=== PATIENT | male | born 1945 | race Caucasian/White ===

== ENCOUNTER 2020-06-15 14:03 | Observation (INO) ==
[2020-06-15 14:36] VITALS: BMI 31.5
--- NOTE | 2020-06-15 14:48 | DR.GENAD ---
HPI Time Seen Time Seen by Provider: 06/15/20 14:47 PCP Primary Care Physician: KOMAL Complaint/Symptoms Chief Complaint:: PT. TESTED POSITIVE FOR COVID 19 ON TUESDAY. PT. C/O DECREASED APPETITE AND WEAKNESS. PT. C/O NAUSEA AND DIARRHEA. COVID-19 Coronavirus risk:travel/contact w/high risk person: Yes Has patient experienced Coronavirus symptoms: Yes Coronavirus symptoms experienced: Coughing Source History Provided: Patient and Family Member Mode of Arrival Mode of Arrival: Wheelchair Timing Onset of Chief Complaint: 06/10/20 PMH PMH Past Medical History: Yes Past Medical History: Diabetes, GERD and Kidney Stones Past Medical History Comment: PROSTATE CANCER Past Surgical History: Yes Surgical History: Other Past Surgical History Comment: HEMORRHOID Family History History of Family Medical Conditions: Yes Family Medical History: Diabetes Mellitus, Heart Failure and Hypertension Social History Does patient currently use any type of tobacco product: No Have you used tobacco products in the last 12 months: No Type of Tobacco Use: None Does any household member use tobacco: No Alcohol Use: None Do you use any recreational Drugs:: No Lives With: Spouse Lives Where: Home Travel Risk Coronavirus risk:travel/contact w/high risk person: Yes Has patient experienced Coronavirus symptoms: Yes Coronavirus symptoms experienced: Coughing Infectious screening In the last 2 months have you had wt loss of >10#?: NO Have you had fever, night sweats or hemotysis?: No Have you traveled outside the country in the last 6 months?: No Isolation: Droplet PE Vital Signs Vitals: Temperature 98.4 F Pulse Rate [Right Brachial] 76 Pulse Rate 87 Respiratory Rate 18 Blood Pressure [Left Arm] 173/79 Blood Pressure 155/70 O2 Sat by Pulse Oximetry 95 ROR Labs Reviewed Result Diagrams: 06/15/20 15:20 06/15/20 15:20 Laboratory: WBC 6.6 X10^3/uL (3.6-10.0) 06/15/20 15:20 RBC 4.59 X10^6/uL (4.7-6.0) L 06/15/20 15:20 Hgb 13.7 g/dL (13.5-18.0) 06/15/20 15:20 Hct 40.3 % (42.0-54.0) L 06/15/20 15:20 MCV 87.8 fL (80.0-100.0) 06/15/20 15:20 MCH 29.9 pg (27.0-34.0) 06/15/20 15:20 MCHC 34.0 g/dL (33.0-35.0) 06/15/20 15:20 RDW 13.2 % (11.6-16.5) 06/15/20 15:20 Plt Count 180 X10^3/uL (150.0-450.0) 06/15/20 15:20 MPV 7.2 fL (7.4-11.0) L 06/15/20 15:20 Neut % (Auto) 79.3 % (42.0-75.0) H 06/15/20 15:20 Lymph % (Auto) 10.7 % (21.0-51.0) L 06/15/20 15:20 Lewis % (Auto) 9.5 % (0.0-13.0) 06/15/20 15:20 Eos % (Auto) 0.2 % (0.9-2.9) L 06/15/20 15:20 Baso % (Auto) 0.3 % (0.2-1.0) 06/15/20 15:20 Neut # (Auto) 5.3 x10^3/uL (2.2-4.8) H 06/15/20 15:20 Lymph # (Auto) 0.7 X10^3/uL (1.3-2.9) L 06/15/20 15:20 [place] # (Auto) 0.6 x10^3/uL (0.3-0.8) 06/15/20 15:20 Eos # (Auto) 0.0 x10^3/uL (0.0-0.2) 06/15/20 15:20 Baso # (Auto) 0.0 X10^3/uL (0.0-0.1) 06/15/20 15:20 Absolute Nucleated RBC 0.2 /100WBC 06/15/20 15:20 Sample Site Lrad 06/15/20 15:43 ABG pH 7.470 (7.35-7.45) H 06/15/20 15:43 ABG pCO2 34.0 mmHg (35.0-45.0) L 06/15/20 15:43 ABG pO2 71.0 mmHg (80.0-100.0) L 06/15/20 15:43 ABG HCO3 24.7 mmol/L (22-26) 06/15/20 15:43 ABG O2 Saturation 95.0 % (90-100) 06/15/20 15:43 ABG Base Excess 1.4 mmol/L (-2.0-2.0) 06/15/20 15:43 Cristi Test Pos 06/15/20 15:43 A-a Gradient 36.0 mmHg 06/15/20 15:43 FiO2 21.0 06/15/20 15:43 Blood Gas Comments Pt mirela well elj 06/15/20 15:43 Sodium 133 mmol/L (136-145) L 06/15/20 15:20 Corrected Sodium 134 mmol/L (136-145) L 06/15/20 15:20 Potassium 4.2 mmol/L (3.5-5.1) 06/15/20 15:20 Chloride 99 mmol/L (98-107) 06/15/20 15:20 Carbon Dioxide 25.3 mmol/L (21-32) 06/15/20 15:20 BUN 17 mg/dL (7-18) 06/15/20 15:20 Creatinine 1.19 mg/dL (0.70-1.30) 06/15/20 15:20 Est GFR (MDRD) Af Amer > 60 (>60) 06/15/20 15:20 Est GFR (MDRD) Non-Af > 60 (>60) 06/15/20 15:20 Glucose 151 mg/dL (65-99) H 06/15/20 15:20 POC Glucose (mg/dL) 154 mg/dL (65-99) H 06/15/20 21:44 Calcium 8.7 mg/dL (8.5-10.1) 06/15/20 15:20 Corrected Calcium 9.5 mg/dL (8.5-10.1) 06/15/20 15:20 Total Bilirubin 0.40 mg/dL (0.2-1.0) 06/15/20 15:20 AST 24 Units/L (15-37) 06/15/20 15:20 ALT 24 Units/L (12-78) 06/15/20 15:20 Alkaline Phosphatase 47 Units/L (46-116) 06/15/20 15:20 Creatine Kinase 54 Units/L (39-308) 06/15/20 15:20 Creatine Kinase Cancelled 06/15/20 15:20 CK-MB (CK-2) < 1.0 ng/mL (0-4.0) 06/15/20 15:20 CK-MB (CK-2) Cancelled 06/15/20 15:20 CK/CKMB % Calc 1.9 % (<4) 06/15/20 15:20 CK/CKMB % Calc Cancelled 06/15/20 15:20 Troponin I < 0.02 ng/mL (0-1.5) 06/15/20 15:20 Troponin I Cancelled 06/15/20 15:20 Total Protein 7.1 g/dL (6.4-8.2) 06/15/20 15:20 Albumin 3.0 g/dL (3.4-5.0) L 06/15/20 15:20 Globulin 4.1 g/dL (2.5-4.5) 06/15/20 15:20 Albumin/Globulin Ratio 0.7 Ratio (1.1-2.1) L 06/15/20 15:20 SARS CoV-2 RNA Rapid JOAQUIN Positive (NEGATIVE) A 06/15/20 19:39 Opioid Opioid Risk Tool Age (Brown box if 16-45): No History of Preadolescent Sexual Abuse: No Total: 0 Total Score Risk Category: Low Risk Copyright: [facility] predicting aberrant behaviors Diagnosis Discharge Problem: Generalized weakness, Acute dehydration, COVID-19 virus infection Diarrhea Qualifiers: Diarrhea type: unspecified type Qualified Code(s): R19.7 - Diarrhea, unspecifi ed N&V (nausea and vomiting) Qualifiers: Vomiting type: unspecified Vomiting Intractability: unspecified Qualified Code(s): R11.2 - Nausea with vomiting, unspecified Pneumonia Qualifiers: Pneumonia type: due to unspecified organism Laterality: left Lung location: lower lobe of lung Qualified Code(s): J18.9 - Pneumonia, unspecified organism Instructions Forms: Precautions for COVID19 Patient Portal Social Distancing
[2020-06-15 15:39] LABS: BASOPHILS % (AUTO) 0.3 % (0.2-1.0); EOSINOPHILS % (AUTO) 0.2 % (0.9-2.9); HEMATOCRIT 40.3 % (42.0-54.0); HEMOGLOBIN 13.7 g/dL (13.5-18.0); LYMPHOCYTES # (AUTO) 0.7 X10^3/uL (1.3-2.9); LYMPHOCYTES % (AUTO) 10.7 % (21.0-51.0); MEAN CORPUSCULAR HEMOGLOBIN 29.9 pg (27.0-34.0); MEAN CORPUSCULAR VOLUME 87.8 fL (80.0-100.0); MEAN PLATELET VOLUME 7.2 fL (7.4-11.0); MONOCYTES # (AUTO) 0.6 x10^3/uL (0.3-0.8); MONOCYTES % (AUTO) 9.5 % (0.0-13.0); NEUTROPHILS # (AUTO) 5.3 x10^3/uL (2.2-4.8); NEUTROPHILS % (AUTO) 79.3 % (42.0-75.0); PLATELET COUNT 180 X10^3/uL (150.0-450.0); RED BLOOD COUNT 4.59 X10^6/uL (4.7-6.0); RED CELL DISTRIBUTION WIDTH 13.2 % (11.6-16.5); WHITE BLOOD COUNT 6.6 X10^3/uL (3.6-10.0)
[2020-06-15 15:49] LABS: ABG ALLEN TEST POS; ABG BASE EXCESS 1.4 mmol/L (-2.0-2.0); ABG HCO3 24.7 mmol/L (22-26)
[2020-06-15 15:54] LABS: BLOOD UREA NITROGEN 17 mg/dL (7-18); CALCIUM 8.7 mg/dL (8.5-10.1); CARBON DIOXIDE 25.3 mmol/L (21-32); CHLORIDE 99 mmol/L (98-107); COR NA(FOR HYPERGLY) 134 mmol/L (136-145); CREATININE 1.19 mg/dL (0.70-1.30); SODIUM 133 mmol/L (136-145); TROPONIN I < 0.02 ng/mL (0-1.5); eGFR NON BLACK RACES > 60 (>60)
--- NOTE | 2020-06-15 15:57 | RAD ---
HISTORYCOVID, LOSS OF APPETITE, NVDSTUDYCHEST, 1 VIEWCOMPARISONNone.FINDINGSOverlying artifact. Heart size normal. Vague opacities laterally in the left mid and lower lung zones. Costophrenic angles sharp. No pulmonary edema. Bony structures normal in appearance for patient's age.IMPRESSIONVague opacities laterally in the left mid and lower lung zones.Electronically signed by: Ralf Lindsey (Jun 15, 2020 15:56:09)
[2020-06-15 15:59] LABS: ALANINE AMINOTRANSFERASE 24 Units/L (12-78); ALKALINE PHOSPHATASE 47 Units/L (46-116); ASPARTATE AMINO TRANSFERASE 24 Units/L (15-37); CKMB % 1.9 % (<4); COR CA(FOR HYPOALB) 9.5 mg/dL (8.5-10.1); CREATINE KINASE 54 Units/L (39-308); CREATINE KINASE MB < 1.0 ng/mL (0-4.0); TOTAL PROTEIN 7.1 g/dL (6.4-8.2)
[2020-06-15] MEDS ORDERED: ROCEPHIN VIAL 1 GRAM 1 G in NS 100 ML IV + SPIKE MINIBAG* 100 ML IV ONE (17:29)
[2020-06-15] MEDS ORDERED: NS 1000 ML 1,000 ML IV ONE (17:31)
[2020-06-15] MEDS ORDERED: NS 100 ML IV + SPIKE MINIBAG* 100 ML IV ONE (17:47)
[2020-06-15] MEDS ORDERED: ROCEPHIN VIAL 1 GRAM ONE (17:47)
[2020-06-15] MEDS ORDERED: NS 1000 ML 1,000 ML ONE (17:49)
[2020-06-16] MEDS ORDERED: ZOFRAN INJ 4 MG VIAL IVP PRN (00:49)
[2020-06-16] MEDS ORDERED: PEPCID 20 MG IV PREMIX* 20 MG/50 ML BAG IV PRN (00:49)
[2020-06-16] MEDS: NS 1000 ML 1,000 ML IV SCH ×3 (02:52→21:01)
[2020-06-16 05:56] LABS: ALANINE AMINOTRANSFERASE 23 Units/L (12-78); ALBUMIN 2.8 g/dL (3.4-5.0); ALKALINE PHOSPHATASE 42 Units/L (46-116); ASPARTATE AMINO TRANSFERASE 23 Units/L (15-37); BLOOD UREA NITROGEN 17 mg/dL (7-18); CALCIUM 8.2 mg/dL (8.5-10.1); CARBON DIOXIDE 23.3 mmol/L (21-32); CHLORIDE 100 mmol/L (98-107); COR CA(FOR HYPOALB) 9.2 mg/dL (8.5-10.1); COR NA(FOR HYPERGLY) 136 mmol/L (136-145); CREATININE 1.05 mg/dL (0.70-1.30); SODIUM 135 mmol/L (136-145); TOTAL PROTEIN 6.7 g/dL (6.4-8.2); eGFR NON BLACK RACES > 60 (>60)
[2020-06-16 06:04] LABS: BASOPHILS % (AUTO) 0.5 % (0.2-1.0); EOSINOPHILS % (AUTO) 0.2 % (0.9-2.9); LYMPHOCYTES # (AUTO) 1.2 X10^3/uL (1.3-2.9); LYMPHOCYTES % (AUTO) 24.8 % (21.0-51.0); MEAN CORPUSCULAR HGB CONC 34.3 g/dL (33.0-35.0); MEAN CORPUSCULAR VOLUME 87.3 fL (80.0-100.0); MEAN PLATELET VOLUME 7.9 fL (7.4-11.0); MONOCYTES # (AUTO) 0.5 x10^3/uL (0.3-0.8); MONOCYTES % (AUTO) 10.7 % (0.0-13.0); NEUTROPHILS # (AUTO) 3.1 x10^3/uL (2.2-4.8); NEUTROPHILS % (AUTO) 63.8 % (42.0-75.0); PLATELET COUNT 181 X10^3/uL (150.0-450.0); RED BLOOD COUNT 4.35 X10^6/uL (4.7-6.0); RED CELL DISTRIBUTION WIDTH 13.1 % (11.6-16.5); WHITE BLOOD COUNT 4.8 X10^3/uL (3.6-10.0)
[2020-06-16] MEDS ORDERED: TYLENOL 325 MG TAB PO PRN (07:24)
[2020-06-16 07:44] LABS: BILIRUBIN,URINE NEGATIVE (NEGATIVE); BLOOD/HEMOGLOBIN,URINE 2+ (NEGATIVE); GLUCOSE, URINE NEGATIVE (NEGATIVE); KETONES,URINE 2+ (NEGATIVE); LEUKOCYTE ESTERASE ,URINE NEGATIVE (NEGATIVE); NITRITES,URINE NEGATIVE (NEGATIVE); PROTEIN,URINE 2+ (NEGATIVE); UROBILINOGEN,URINE NORMAL (NORMAL)
[2020-06-16 08:05] LABS: COLOR,URINE DARK YELLOW (YELLOW)
[2020-06-16 08:06] LABS: APPEARANCE,URINE CLOUDY (CLEAR)
[2020-06-16 08:09] LABS: SQUAMOUS EPITHELIAL CELL,UR FEW /HPF (NEGATIVE)
[2020-06-16 08:10] LABS: BACTERIA,URINE TRACE /HPF (NEGATIVE)
[2020-06-16] MEDS ORDERED: REMDESIVIR 200 MG in NS 250 ML IV 250 ML IV NR (08:54)
--- NOTE | 2020-06-16 10:42 | RAD ---
HISTORYPNEUMONIASTUDYCHEST, 1 [id number]/20/2020FINDINGSStable cardiomediastinal silhouette. Right lung grossly clear. There are progressive streaky opacities in the left midlung. No sizable effusion or visible pneumothorax. No acute osseous finding.IMPRESSIONWorsening left lung opacities.Electronically signed by: Vineet Tyson (Jun 16, 2020 10:40:16)
[2020-06-16] MEDS: ZITHROMAX INJ 500 MG VIAL 500 MG in NS 250 ML IV 250 ML IV SCH ×2 (11:22→11:26)
[2020-06-16] MEDS: ZOSYN VIAL 3.375 GRAMS 3.375 G in NS 100 ML IV + SPIKE MINIBAG* 100 ML IV SCH ×3 (11:22→21:02)
[2020-06-16] MEDS: PEPCID TAB 20 MG PO SCH ×2 (11:23→21:02)
[2020-06-16] MEDS: PROTONIX INJ 40 MG VIAL IVP SCH (11:23)
[2020-06-16] MEDS: SOLU-Medrol 40 MG VIAL IVP SCH ×3 (11:23→21:02)
[2020-06-16] MEDS: HumuLIN R SUBCUT PRN ×3 (11:28→21:02)
--- NOTE | 2020-06-16 18:16 | DR.H&P ---
H&P - History & Physical for Day of: H&P Date: 06/15/20 - Chief Complaint Chief Complaint: NAUSEA, WEAKNESS, COUGH COVID + - History of Present Illness History of Present Illness: PT. TESTED POSITIVE FOR COVID 19 ON TUESDAY. PT. C/O DECREASED APPETITE AND WEAKNESS. PT. C/O NAUSEA AND DIARRHEA. - Past Medical History Past Medical History: Diabetes, GERD, Kidney Stones - Past Surgical History Surgical History: Lithotripsy, Other - Family History Family Medical History: Diabetes Mellitus, Coronary Artery Disease, Hypertension - Social History Does patient currently use any type of tobacco product: No Have you used tobacco products in the last 12 months: No Type of Tobacco Use: None Does any household member use tobacco: No Alcohol Use: None Drug Use: None - Medications Home Medications: No Known Drug Allergies Allergy (Verified 06/15/20 14:36) CONTINUE taking the following medications gabapentin 300 mg PO HS 06/16/20 [History] hydrochlorothiazide 12.5 mg PO DAILY 06/16/20 [History] insulin aspart U-100 [Novolog Flexpen U-100 Insulin] 18 unit SUBCUT TID 06/16/20 [History] insulin glargine 70 unit SUBCUT DAILY 06/16/20 [History] insulin glargine [Lantus U-100 Insulin] See Rx Instructions .ROUTE .COMPLEX 06/16/20 [History] lisinopril 10 mg PO DAILY 06/16/20 [History] metformin 500 mg PO BID 06/16/20 [History] simvastatin 20 mg PO HS 06/16/20 [History] - Review of Systems Constitutional: Fever, Weakness Eyes: No Symptoms Reported ENT: No Symptoms Reported Respiratory: Shortness of Breath Cardiovascular: No Symptoms Reported Gastrointestinal: No Symptoms Reported Genitourinary: No Symptoms Reported Musculoskeletal: No Symptoms Reported Skin: No Symptoms Reported Neurological: No Symptoms Reported - Physical Exam Vital Signs: Temperature 98.4 F Pulse Rate [Right Brachial] 79 Pulse Rate 86 Respiratory Rate 22 Blood Pressure [Left Arm] 154/73 Blood Pressure 155/70 O2 Sat by Pulse Oximetry 96 Oriented: Normal Eyes: Normal Ear: Normal Nose: Normal Throat: Normal Respiratory: Diminished Throughout Cardiovascular: Normal : Normal Auscultation: Bowel Sounds: Normal Palpation: Normal Tenderness: Normal Skin: Decreased Turgur Musculoskeletal: Normal Psychiatric: Anxiety Affect: Anxious Speech Pattern: Clear, Appropriate - Assessment/Plan (1) COVID-19 virus infection Status: Acute Plan: ADMIT, IV HYDRATION. SUPPLEMENTAL O2, IV ATBX, IV REMDESIVIR. AM ABG, AM CXR, SSI COVERAGE, BP AND CARDIAC MONITORING. VERIFY HOME MEDICATION (2) Hypertension Qualifiers: Hypertension type: essential hypertension Qualified Code(s): I10 - Essential (primary) hypertension Status: Acute (3) Acute dehydration Status: Acute (4) Pneumonia Qualifiers: Pneumonia type: due to unspecified organism Laterality: left Lung location: lower lobe of lung Qualified Code(s): J18.9 - Pneumonia, unspecified organism Status: Acute - Allergies Allergies/Adverse Reactions: Allergies Allergy/AdvReac Type Severity Reaction Status Date / Time No Known Drug Allergies Allergy Verified 06/15/20 14:36
[2020-06-16] MEDS ORDERED: SNACK - Diabetic Appropriate PO SCH (20:00)
[2020-06-16] MEDS ORDERED: NEURONTIN CAP 300 MG PO SCH (21:00)
[2020-06-16] MEDS ORDERED: ZOCOR TAB 40 MG PO SCH (21:00)
[2020-06-16] MEDS: ZESTRIL TAB 10 MG PO SCH (21:01)
[2020-06-17 06:12] LABS: ALANINE AMINOTRANSFERASE 26 Units/L (12-78); ALBUMIN 2.4 g/dL (3.4-5.0); ALKALINE PHOSPHATASE 46 Units/L (46-116); ASPARTATE AMINO TRANSFERASE 31 Units/L (15-37); BLOOD UREA NITROGEN 16 mg/dL (7-18); CALCIUM 7.9 mg/dL (8.5-10.1); CARBON DIOXIDE 22.9 mmol/L (21-32); CHLORIDE 105 mmol/L (98-107); COR CA(FOR HYPOALB) 9.2 mg/dL (8.5-10.1); COR NA(FOR HYPERGLY) 143 mmol/L (136-145); CREATININE 0.89 mg/dL (0.70-1.30); SODIUM 140 mmol/L (136-145); TOTAL PROTEIN 6.4 g/dL (6.4-8.2); eGFR NON BLACK RACES > 60 (>60)
[2020-06-17 06:16] LABS: BASOPHILS % (AUTO) 0.1 % (0.2-1.0); HEMATOCRIT 37.6 % (42.0-54.0); HEMOGLOBIN 13.1 g/dL (13.5-18.0); LYMPHOCYTES # (AUTO) 0.6 X10^3/uL (1.3-2.9); MEAN CORPUSCULAR HEMOGLOBIN 30.3 pg (27.0-34.0); MEAN CORPUSCULAR HGB CONC 34.7 g/dL (33.0-35.0); MEAN CORPUSCULAR VOLUME 87.4 fL (80.0-100.0); MEAN PLATELET VOLUME 7.7 fL (7.4-11.0); MONOCYTES # (AUTO) 0.2 x10^3/uL (0.3-0.8); NEUTROPHILS # (AUTO) 2.6 x10^3/uL (2.2-4.8); NEUTROPHILS % (AUTO) 75.9 % (42.0-75.0); PLATELET COUNT 184 X10^3/uL (150.0-450.0); RED BLOOD COUNT 4.31 X10^6/uL (4.7-6.0); RED CELL DISTRIBUTION WIDTH 12.8 % (11.6-16.5); WHITE BLOOD COUNT 3.5 X10^3/uL (3.6-10.0)
[2020-06-17] MEDS: ZOSYN VIAL 3.375 GRAMS 3.375 G in NS 100 ML IV + SPIKE MINIBAG* 100 ML IV SCH ×2 (06:27→13:03)
[2020-06-17] MEDS: SOLU-Medrol 40 MG VIAL IVP SCH ×2 (06:27→13:03)
[2020-06-17] MEDS: HumuLIN R SUBCUT PRN ×3 (06:28→15:56)
[2020-06-17] MEDS: NS 1000 ML 1,000 ML IV SCH ×2 (06:29→18:09)
--- NOTE | 2020-06-17 07:13 | RAD ---
HISTORYFollow-up pneumoniaSTUDYChest AP [id number]/21/2020FINDINGSThe heart is within normal limits in size. The manjinder are normal. Hypo inflation is unchanged. The right lung remains clear with the exception of minimal subsegmental atelectasis in the right lung base. Left-sided perihilar infiltrates are unchanged. No pleural effusions are identified. Bony thorax is unremarkable.IMPRESSIONNo significant change from the prior examinationElectronically signed by: MARIE CAMILO (Jun 17, 2020 07:11:53)
[2020-06-17] MEDS ORDERED: LOVENOX INJ 40 MG SYR SC SCH (09:00)
[2020-06-17] MEDS ORDERED: REMDESIVIR 100 MG in NS 250 ML IV 250 ML IV SCH (09:00)
[2020-06-17] MEDS: PEPCID TAB 20 MG PO SCH (09:02)
[2020-06-17] MEDS: ZESTRIL TAB 10 MG PO SCH (09:02)
[2020-06-17] MEDS: PROTONIX INJ 40 MG VIAL IVP SCH (09:16)
[2020-06-17] MEDS: ZITHROMAX INJ 500 MG VIAL 500 MG in NS 250 ML IV 250 ML IV SCH (11:01)
[2020-06-17 11:02] LABS: ABG BASE EXCESS -1.7 mmol/L (-2.0-2.0); ABG HCO3 21.5 mmol/L (22-26)
[2020-06-17] MEDS ORDERED: KLOR-CON PO PRN (11:46)
[2020-06-17] MEDS ORDERED: POTASSIUM CHL 60 MEQ/NS 0.45% 500 ML IV PRN (11:46)
[2020-06-17] MEDS ORDERED: K-RIDER 10 MEQ/NS 100 ML 10 MEQ/100 ML BAG IV PRN (11:46)
[2020-06-17] MEDS ORDERED: MICRO K EXTEN CAP 10 MEQ PO PRN (11:46)
[2020-06-17] MEDS ORDERED: POTASSIUM CHL 40 MEQ/NS 0.45% 500 ML IV PRN (11:46)
[2020-06-17] MEDS ORDERED: POTASSIUM CHLORIDE LIQ 20 MEQ UDC PO PRN (11:46)
[2020-06-17] MEDS ORDERED: K-DUR TAB 20 MEQ PO PRN (11:46)
[2020-06-17] MEDS ORDERED: MAGNESIUM SULFATE 1 GRAM/100 mL PREMIX 1 GM/100 ML BAG IV PRN (11:46)
[2020-06-17 14:45] LABS: CRYPTOSPORIDIUM PARVUM ANTIGEN NEGATIVE (NEGATIVE); GIARDIA LAMBLIA ANTIGEN NEGATIVE (NEGATIVE)
[2020-06-17 16:32] VITALS: BP 172/80
== END 2020-06-17 18:30 | disposition home or self-care (01) ==
LOC: MED/SURG 14:27 → ER 14:27 → MED/SURG 06-16 00:20
PROVIDERS: ADMIT Internal Medicine; ATTEND Internal Medicine
DX: E86.0 Dehydration; E11.65 Type 2 diabetes mellitus with hyperglycemia; R53.1 Weakness; J12.89 Other viral pneumonia; R19.7 Diarrhea, unspecified; R11.2 Nausea with vomiting, unspecified; Z85.038 Personal history of other malignant neoplasm of large intestine; K21.9 Gastro-esophageal reflux disease without esophagitis; U07.1 COVID-19

== ENCOUNTER 2024-10-08 21:24 | Observation (INO) ==
[2024-10-08 21:40] VITALS: BMI 28.7
--- NOTE | 2024-10-08 22:15 | DR.GENAD ---
HPI Time Seen Time Seen by Provider: 10/08/24 22:15 PCP Primary Care Physician: Godwin Dennis Complaint/Symptoms Chief Complaint:: Patient brought in er via wc with complaints of decreased urination, constipation x5 days, and confusion. Pts daughter states pt began chemo on tuesday for advanced pancreatic cancer and has been confused x2 days. Daughter states pt began having a fever 2 days ago but was advised fever was a normal finding after chemo buy chemo nurse. pt A&O but answers questions inappropriately at times. Self Treatment fo Chief Complaint: NA COVID-19 Coronavirus risk:travel/contact w/high risk person: No Has patient experienced Coronavirus symptoms: Yes Coronavirus symptoms experienced: Fever Source History Provided: Patient Mode of Arrival Mode of Arrival: Ambulatory Timing Onset of Chief Complaint: 10/04/24 PMH PMH Past Medical History: Yes Past Medical History: Diabetes, Dyslipidemia, GERD, Kidney Stones and Cancer Past Medical History Comment: Advanced pancreatic cancer, prostate cancer Past Surgical History: Yes Surgical History: Lithotripsy and Other Past Surgical History Comment: [employer] shunt, protate surgery Family History History of Family Medical Conditions: Yes Family Medical History: Diabetes Mellitus, Coronary Artery Disease and Hypertension Social History Does patient currently use any type of tobacco product: No Have you used tobacco products in the last 12 months: No Type of Tobacco Use: None Does any household member use tobacco: No Alcohol Use: None Do you use any recreational Drugs:: No Lives With: Family Lives Where: Home Travel Risk Coronavirus risk:travel/contact w/high risk person: No Has patient experienced Coronavirus symptoms: Yes Coronavirus symptoms experienced: Fever Infectious screening Have you traveled outside the country in the last 6 months?: No Isolation: Standard PE Vital Signs Vitals: Vital Signs Temperature 98.0 F Pulse Rate 90 Pulse Rate 92 Pulse Rate 91 Pulse Rate 94 Pulse Rate 88 Pulse Rate 90 Pulse Rate 90 Pulse Rate 95 Pulse Rate 89 Pulse Rate 88 Pulse Rate 91 Pulse Rate 91 Pulse Rate 92 Pulse Rate 99 Respiratory Rate 19 Blood Pressure 102/57 Blood Pressure 120/56 Blood Pressure 112/53 Blood Pressure 112/53 Blood Pressure 102/57 Blood Pressure 107/56 Blood Pressure 88/53 O2 Sat by Pulse Oximetry 94 O2 Sat by Pulse Oximetry 96 O2 Sat by Pulse Oximetry 97 O2 Sat by Pulse Oximetry 94 O2 Sat by Pulse Oximetry 95 O2 Sat by Pulse Oximetry 95 O2 Sat by Pulse Oximetry 97 O2 Sat by Pulse Oximetry 95 O2 Sat by Pulse Oximetry 94 O2 Sat by Pulse Oximetry 95 O2 Sat by Pulse Oximetry 96 O2 Sat by Pulse Oximetry 95 O2 Sat by Pulse Oximetry 92 ROR Labs Reviewed 10/10/24 04:30 10/10/24 04: Laboratory: WBC 18.9 X10^3/uL (3.6-10.0) H 10/08/24 22: RBC 3.92 X10^6/uL (4.7-6.0) L 10/08/24 22:23 Hgb 10.6 g/dL (13.5-18.0) L 10/08/24 22: Hct 31.8 % (42.0-54.0) L 10/08/24 22: MCV 81.1 fL (80.0-100.0) 10/08/24 22: MCH 27.0 pg (27.0-34.0) 10/08/24 22: MCHC 33.3 g/dL (33.0-35.0) 10/08/24: RDW 14.7 % (11.6-16.5) 10/08/24: Plt Count 143 X10^3/uL (150.0-450.0) L 10/08/24 22: Plt Count Comment Decreased (ADEQUATE) 10/08/24: MPV 8.7 fL (7.4-11.0) 10/08/24 22: Neut % (Auto) 95.1 % (42.0-75.0) H 10/08/24 22: Lymph % (Auto) 2.6 % (21.0-51.0) L 10/08/24 22: [place] % (Auto) 1.1 % (0.0-13.0) 10/08/24 22: Eos % (Auto) 0.8 % (0.9-2.9) L 10/08/24 22: Baso % (Auto) 0.4 % (0.2-1.0) 10/08/24 22: Neut # (Auto) 18.0 x10^3/uL (2.2-4.8) H 10/08/24 22:23 Lymph # (Auto) 0.5 X10^3/uL (1.3-2.9) L 10/08/24 22:23 [place] # (Auto) 0.2 x10^3/uL (0.3-0.8) L 10/08/24 22:23 Eos # (Auto) 0.1 x10^3/uL (0.0-0.2) 10/08/24 22:23 Baso # (Auto) 0.1 X10^3/uL (0.0-0.1) 10/08/24 22:23 Absolute Nucleated RBC 0.2 /100WBC 10/08/24 22:23 Total Counted 100 10/08/24 22:23 Neutrophils % (Manual) 97 % (39-76) H 10/08/24 22:23 Lymphocytes % (Manual) 2 % (13-43) L 10/08/24 22:23 Monocytes % (Manual) 1 % (4-9) L 10/08/24 22:23 Plt Morphology Comment Normal (NORMAL) 10/08/24 22:23 RBC Morphology Normal (NORMAL) 10/08/24 22:23 Sodium 128 mmol/L (136-145) L 10/08/24 22:23 Corrected Sodium 131 mmol/L (136-145) L 10/08/24 22:23 Potassium 4.7 mmol/L (3.5-5.1) 10/08/24 22:23 Chloride 95 mmol/L (98-107) L 10/08/24 22:23 Carbon Dioxide 20.5 mmol/L (21-32) L 10/08/24 22:23 BUN 48 mg/dL (7-18) H 10/08/24 22:23 Creatinine 2.22 mg/dL (0.70-1.30) H 10/08/24 22:23 Est GFR (MDRD) Af Amer 37 (>60) L 10/08/24 22:23 Est GFR (MDRD) Non-Af 31 (>60) L 10/08/24 22:23 Glucose 215 mg/dL (65-99) H 10/08/24 22:23 Calcium 8.6 mg/dL (8.5-10.1) 10/08/24 22:23 Corrected Calcium 10.0 mg/dL (8.5-10.1) 10/08/24 22:23 Total Bilirubin 0.60 mg/dL (0.2-1.0) 10/08/24 22:23 AST 99 Units/L (15-37) H 10/08/24 22:23 ALT 76 Units/L (12-78) 10/08/24 22:23 Alkaline Phosphatase 190 Units/L (46-116) H 10/08/24 22:23 B-Natriuretic Peptide 90.7 pg/mL (0-79) H 10/08/24 22:23 Total Protein 7.0 g/dL (6.4-8.2) 10/08/24 22:23 Albumin 2.2 g/dL (3.4-5.0) L 10/08/24 22:23 Globulin 4.8 g/dL (2.5-4.5) H 10/08/24 22:23 Albumin/Globulin Ratio 0.5 Ratio (1.1-2.1) L 10/08/24 22:23 Amylase 15 Units/L (25-115) L 10/08/24 22:23 Lipase 11 Units/L (16-77) L 10/08/24 22:23 Specimen Type Clean catch urine 10/08/24 23:39 Urine Color Yellow (YELLOW) 10/08/24 23:39 Urine Appearance Clear (CLEAR) 10/08/24 23:39 Urine pH 5.0 (5.0 - 8.0) 10/08/24 23:39 Ur Specific [place] 1.010 (1.000-1.030) 10/08/24 23:39 Urine Protein 2+ (NEGATIVE) 10/08/24 23:39 Urine Glucose (UA) 4+ (NEGATIVE) 10/08/24 23:39 Urine Ketones Negative (NEGATIVE) 10/08/24 23:39 Urine Blood Negative (NEGATIVE) 10/08/24 23:39 Urine Nitrite Negative (NEGATIVE) 10/08/24 23:39 Urine Bilirubin Negative (NEGATIVE) 10/08/24 23:39 Urine Urobilinogen Normal (NORMAL) 10/08/24 23:39 Ur Leukocyte Esterase 1+ (NEGATIVE) 10/08/24 23:39 Urine RBC None seen /HPF (0-3) 10/08/24 23:39 Urine WBC 0-2 /HPF (0-5) 10/08/24 23:39 Ur Squamous Epith Cells Few /HPF (NEGATIVE) 10/08/24 23:39 Amorphous Sediment Trace /HPF (NEGATIVE) 10/08/24 23:39 Urine Bacteria Trace /HPF (NEGATIVE) 10/08/24 23:39 Ur Culture Indicated? No/not indicated 10/08/24 23:39 Opioid Opioid Risk Tool Age (Brown box if 16-45): No History of Preadolescent Sexual Abuse: No Total: 0 Total Score Risk Category: Low Risk Copyright: [facility] predicting aberrant behaviors Discharge Plan Diagnosis Discharge Problem: Acute dehydration, Generalized weakness Cancer of pancreas Qualifiers: Pancreatic malignancy location: other parts of pancreas Qualified Code(s): C25.7 - Malignant neoplasm of other parts of pancreas Discharge Plan Patient Disposition: 09 ADMITTED INPATIENT Condition: Stable Prescription drug monitoring program results: PDMP reviewed and no concerns iden tified Orders to Discharge Patient Discharge Orders: Discharge (Routine); Ordered 10/10/24 Ordered By: Camilla Juan
[2024-10-08] MEDS: NS 1,000 ML IV 1,000 ML IV SCH (22:29)
[2024-10-08 22:50] LABS: BASOPHILS # (AUTO) 0.1 X10^3/uL (0.0-0.1); BASOPHILS % (AUTO) 0.4 % (0.2-1.0); EOSINOPHILS # (AUTO) 0.1 x10^3/uL (0.0-0.2); EOSINOPHILS % (AUTO) 0.8 % (0.9-2.9); HEMATOCRIT 31.8 % (42.0-54.0); HEMOGLOBIN 10.6 g/dL (13.5-18.0); LYMPHOCYTES # (AUTO) 0.5 X10^3/uL (1.3-2.9); LYMPHOCYTES % (AUTO) 2.6 % (21.0-51.0); MEAN CORPUSCULAR HGB CONC 33.3 g/dL (33.0-35.0); MEAN CORPUSCULAR VOLUME 81.1 fL (80.0-100.0); MEAN PLATELET VOLUME 8.7 fL (7.4-11.0); MONOCYTES # (AUTO) 0.2 x10^3/uL (0.3-0.8); MONOCYTES % (AUTO) 1.1 % (0.0-13.0); NEUTROPHILS % (AUTO) 95.1 % (42.0-75.0); PLATELET COUNT 143 X10^3/uL (150.0-450.0); RED BLOOD COUNT 3.92 X10^6/uL (4.7-6.0); RED CELL DISTRIBUTION WIDTH 14.7 % (11.6-16.5); WHITE BLOOD COUNT 18.9 X10^3/uL (3.6-10.0)
[2024-10-08 22:55] LABS: ALBUMIN 2.2 g/dL (3.4-5.0); CALCIUM 8.6 mg/dL (8.5-10.1); CARBON DIOXIDE 20.5 mmol/L (21-32); CREATININE 2.22 mg/dL (0.70-1.30); POTASSIUM 4.7 mmol/L (3.5-5.1)
[2024-10-08 23:00] LABS: PLATELET MORPHOLOGY COMMENT NORMAL (NORMAL)
--- NOTE | 2024-10-08 23:39 | CT ---
EXAM: BRAIN W/O CON HISTORY: AMS ; COMPARISON: January 06, 2024 TECHNIQUE: Axial non-contrast images of the head were obtained with coronal and sagittal reformats provided. Radiation dose: 893.84 mGy-cm total DLP FINDINGS: Age indeterminate ischemia in the left occipital lobe. Walden-white differentiation remains intact. No intracranial, extra-axial, fluid collection. No hemorrhage. Periventricular chronic microvascular disease. No mass, mass effect or midline shift. Age related brain parenchymal global atrophy. Right posterior ventriculostomy drainage catheter in place. No significant changes in the size of th e ventricles when compared to the previous exam. No acute fracture. Sinuses are well aerated. Mastoid air cells are well aerated. Globes and intra-orbital contents are unremarkable. IMPRESSION: 1. Age indeterminate ischemia in the left occipital lobe. Acuity could be determined by MRI if clini carlos indicated. 2. Right posterior ventriculostomy drainage catheter in place. No significant changes in the size of the ventricles when compared to the previous exam. THIS IS AN ELECTRONICALLY VERIFIED FINAL REPORT 10/08/2024 11:36 PM - Electronically signed by Clint Pinon MD
--- NOTE | 2024-10-08 23:44 | CT ---
EXAM: ABDOMEN/PELVIS W/O CON HISTORY: decreased urination, constipation x5 days, and confusion.; COMPARISON: May 18, 2021 TECHNIQUE: Non-contrasted axial CT images of the abdomen and pelvis were obtained and reformatted into coronal a nd sagittal planes for further evaluation. Radiation dose: 359.22 mGy-cm total DLP FINDINGS: Lung bases are clear. Stomach appears normal. Large ill-defined low-attenuation foci in the right hepatic lobe measuring approximately 10.2 x 7.7 c m. Mass in the pancreatic tail measuring approximately 6 x 4 x 3.9 cm. Spleen and adrenal glands are unremarkable. Gallbladder appears normal. No intra or extrahepatic biliary dilatation. Unremarkable appearance of the kidneys. No hydronephrosis, hydroureter or ureteral calculus. Unremarkable appearance of the urinary bladder. Colonic diverticulosis without diverticulitis. Otherwise, unremarkable appearance of the small and large bowel. Reproductive structures are unremarkable. Brachytherapy seeds in the prostate gland. No evidence of acute appendicitis. No pneumoperitoneum. No significant fluid collection. No adenopathy. No acute osseous abnormality. [id number] multilevel degenerative disc and joint changes. IMPRESSION: 1. Ill-defined mass in the pancreatic tail is concerning a neoplastic process. 2. Large low-attenuation ill-defined foci right hepatic lobe is concerning for metastatic disease. 3. Colonic diverticulosis without diverticulitis. THIS IS AN ELECTRONICALLY VERIFIED FINAL REPORT 10/08/2024 11:41 PM - Electronically signed by Clint Pinon MD
[2024-10-09 00:04] LABS: BILIRUBIN,URINE NEGATIVE (NEGATIVE); BLOOD/HEMOGLOBIN,URINE NEGATIVE (NEGATIVE); GLUCOSE, URINE 4+ (NEGATIVE); KETONES,URINE NEGATIVE (NEGATIVE); LEUKOCYTE ESTERASE ,URINE 1+ (NEGATIVE); NITRITES,URINE NEGATIVE (NEGATIVE); PROTEIN,URINE 2+ (NEGATIVE); UROBILINOGEN,URINE NORMAL (NORMAL)
[2024-10-09 00:10] LABS: APPEARANCE,URINE CLEAR (CLEAR); COLOR,URINE YELLOW (YELLOW)
[2024-10-09 00:11] LABS: BACTERIA,URINE TRACE /HPF (NEGATIVE); RBC,URINE NONE SEEN /HPF (0-3); SQUAMOUS EPITHELIAL CELL,UR FEW /HPF (NEGATIVE)
[2024-10-09] MEDS: NYSTATIN POWDER TOP PRN (05:51)
[2024-10-09 06:17] LABS: BASOPHILS % (AUTO) 0.2 % (0.2-1.0); EOSINOPHILS # (AUTO) 0.1 x10^3/uL (0.0-0.2); EOSINOPHILS % (AUTO) 0.9 % (0.9-2.9); HEMATOCRIT 28.9 % (42.0-54.0); HEMOGLOBIN 9.7 g/dL (13.5-18.0); LYMPHOCYTES # (AUTO) 0.7 X10^3/uL (1.3-2.9); MEAN CORPUSCULAR HGB CONC 33.5 g/dL (33.0-35.0); MEAN CORPUSCULAR VOLUME 80.5 fL (80.0-100.0); MEAN PLATELET VOLUME 8.4 fL (7.4-11.0); MONOCYTES # (AUTO) 0.1 x10^3/uL (0.3-0.8); MONOCYTES % (AUTO) 0.7 % (0.0-13.0); NEUTROPHILS # (AUTO) 13.3 x10^3/uL (2.2-4.8); NEUTROPHILS % (AUTO) 93.2 % (42.0-75.0); PLATELET COUNT 134 X10^3/uL (150.0-450.0); RED BLOOD COUNT 3.59 X10^6/uL (4.7-6.0); RED CELL DISTRIBUTION WIDTH 14.8 % (11.6-16.5); WHITE BLOOD COUNT 14.3 X10^3/uL (3.6-10.0)
[2024-10-09 06:31] LABS: ALBUMIN 2.1 g/dL (3.4-5.0); CALCIUM 8.5 mg/dL (8.5-10.1); CARBON DIOXIDE 22.6 mmol/L (21-32); CREATININE 1.94 mg/dL (0.70-1.30); POTASSIUM 3.9 mmol/L (3.5-5.1); TOTAL PROTEIN 6.6 g/dL (6.4-8.2)
[2024-10-09 07:19] LABS: PLATELET MORPHOLOGY COMMENT NORMAL (NORMAL)
[2024-10-09] MEDS: FOLIC ACID TAB 1 MG PO SCH (09:42)
[2024-10-09] MEDS: PROTONIX TAB 40 MG PO SCH (09:42)
--- NOTE | 2024-10-09 09:51 | DR.H&P ---
H&P History & Physical for Day of: H&P Date: 10/09/24 Chief Complaint Chief Complaint: nausea, poor oral intake History of Present Illness History of Present Illness: Mr. 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 He had his first chemotherapy on Tuesday and has been feeling sick since then. He was diagnosed with pancreatic cancer with liver mets in August 2024. ER workup showed elevated creatinine, low chloride and sodium. UA was negative. CT brain showed possible left occipital lobe ischemia, age-indeterminate. CTAP showed pancreatic mass and right hepatic metastatic disease. He was started on IV fluids. He is feeling better this morning. He is alert and oriented. He has been able to tolerate his diet. He denies having any neurological deficits including weakness in upper or lower extremity or changes in speech. His blood pressure is fairly well-controlled. He does have a [employer] shunt, unclear if that is compatible with MRI. He also has a chronic rash in his groin area, sees urology. He was using nystatin cream but has gotten worse since he had chemo. He reports erythematous groin area which is very tender to touch. Labs/imaging reviewed: - WBC 14.3 hemoglobin 9.7 sodium 132 potassium 3.9 BUN 49 creatinine 1.94 - UA negative - CT brain: Left occipital lobe ischemia age-indeterminate - CTAP reviewed Plan: Continue to monitor in ICU with precautions, continue hydration, replace electrolytes as per protocol. Will check with radiology if patient is able to have MRI brain due to his [employer] shunt. He denies having any neurological deficits. Resume home medications as appropriate. Continue sliding scale insulin. Will start cefepime, order blood cultures. Continue nystatin cream. Advance diet as tolerated. Zofran as needed. PT OT as tolerated. Monitor a.m. labs and imaging. Time spent for clinical assessment, reviewing labs and imaging, physical exam, decision making, documentation greater than 45 minutes Past Medical History Past Medical History: Diabetes, Dyslipidemia, GERD, Kidney Stones and Cancer Past Surgical History Surgical History: Neurosurgery, Lithotripsy and Other Family History Family Medical History: Diabetes Mellitus, Coronary Artery Disease and Hypertension Social History Does patient currently use any type of tobacco product: No Have you used tobacco products in the last 12 months: No Type of Tobacco Use: None Does any household member use tobacco: No Alcohol Use: None Drug Use: None Medications Home Medications: Home Medications Medication Instructions Recorded Confirmed Type insulin aspart U-100 100 unit/mL 108 unit subcut DAILY 01/06/24 01/06/24 History (3 mL) subcutaneous pen (Novolog FlexPen U-100 Insulin aspart) empagliflozin 25 mg tablet 25 mg PO QDAY 10/09/24 10/09/24 History (Jardiance) famotidine 40 mg tablet 40 mg PO BID 10/09/24 10/09/24 History folic acid 1 mg tablet 1 mg PO QDAY 10/09/24 10/09/24 History olanzapine 2.5 mg tablet 2.5 mg PO QPM 10/09/24 10/09/24 History olanzapine 5 mg tablet 5 mg PO QPM 10/09/24 10/09/24 History ondansetron HCl 8 mg tablet 8 mg PO Q8H PRN nausea/vomiting 10/09/24 10/09/24 History oxycodone 5 mg tablet 5 mg PO Q4H PRN pain 10/09/24 10/09/24 History pantoprazole 40 mg tablet,delayed 40 mg PO QDAY 10/09/24 10/09/24 History release prochlorperazine maleate 10 mg 10 mg PO Q6H PRN 10/09/24 10/09/24 History tablet Allergies Allergies Allergy/AdvReac Type Severity Reaction Status Date / Time No Known Drug Allergies Allergy Verified 06/15/20 14:36 Labs 10/09/24 05:49 10/09/24 05:49 Labs: Laboratory WBC 14.3 X10^3/uL (3.6-10.0) H 10/09/24 05:49 RBC 3.59 X10^6/uL (4.7-6.0) L 10/09/24 05:49 Hgb 9.7 g/dL (13.5-18.0) L 10/09/24 05:49 Hct 28.9 % (42.0-54.0) L 10/09/24 05:49 MCV 80.5 fL (80.0-100.0) 10/09/24 05:49 MCH 27.0 pg (27.0-34.0) 10/09/24 05:49 MCHC 33.5 g/dL (33.0-35.0) 10/09/24 05:49 RDW 14.8 % (11.6-16.5) 10/09/24 05:49 Plt Count 134 X10^3/uL (150.0-450.0) L 10/09/24 05:49 Plt Count Comment Decreased (ADEQUATE) 10/09/24 05:49 MPV 8.4 fL (7.4-11.0) 10/09/24 05:49 Neut % (Auto) 93.2 % (42.0-75.0) H 10/09/24 05:49 Lymph % (Auto) 5.0 % (21.0-51.0) L 10/09/24 05:49 [place] % (Auto) 0.7 % (0.0-13.0) 10/09/24 05:49 Eos % (Auto) 0.9 % (0.9-2.9) 10/09/24 05:49 Baso % (Auto) 0.2 % (0.2-1.0) 10/09/24 05:49 Neut # (Auto) 13.3 x10^3/uL (2.2-4.8) H 10/09/24 05:49 Lymph # (Auto) 0.7 X10^3/uL (1.3-2.9) L 10/09/24 05:49 [place] # (Auto) 0.1 x10^3/uL (0.3-0.8) L 10/09/24 05:49 Eos # (Auto) 0.1 x10^3/uL (0.0-0.2) 10/09/24 05:49 Baso # (Auto) 0.0 X10^3/uL (0.0-0.1) 10/09/24 05:49 Absolute Nucleated RBC 0.0 /100WBC 10/09/24 05:49 Total Counted 100 10/09/24 05:49 Neutrophils % (Manual) 97 % (39-76) H 10/09/24 05:49 Lymphocytes % (Manual) 3 % (13-43) L 10/09/24 05:49 Monocytes % (Manual) 1 % (4-9) L 10/08/24 22:23 Plt Morphology Comment Normal (NORMAL) 10/09/24 05:49 RBC Morphology Normal (NORMAL) 10/09/24 05:49 Sodium 132 mmol/L (136-145) L 10/09/24 05:49 Corrected Sodium 135 mmol/L (136-145) L 10/09/24 05:49 Potassium 3.9 mmol/L (3.5-5.1) 10/09/24 05:49 Chloride 97 mmol/L (98-107) L 10/09/24 05:49 Carbon Dioxide 22.6 mmol/L (21-32) 10/09/24 05:49 BUN 49 mg/dL (7-18) H 10/09/24 05:49 Creatinine 1.94 mg/dL (0.70-1.30) H 10/09/24 05:49 Est GFR (MDRD) Af Amer 43 (>60) L 10/09/24 05:49 Est GFR (MDRD) Non-Af 36 (>60) L 10/09/24 05:49 Glucose 205 mg/dL (65-99) H 10/09/24 05:49 Calcium 8.5 mg/dL (8.5-10.1) 10/09/24 05:49 Corrected Calcium 10.0 mg/dL (8.5-10.1) 10/09/24 05:49 Total Bilirubin 0.70 mg/dL (0.2-1.0) 10/09/24 05:49 AST 63 Units/L (15-37) H 10/09/24 05:49 ALT 66 Units/L (12-78) 10/09/24 05:49 Alkaline Phosphatase 171 Units/L (46-116) H 10/09/24 05:49 B-Natriuretic Peptide 90.7 pg/mL (0-79) H 10/08/24 22:23 Total Protein 6.6 g/dL (6.4-8.2) 10/09/24 05:49 Albumin 2.1 g/dL (3.4-5.0) L 10/09/24 05:49 Globulin 4.5 g/dL (2.5-4.5) 10/09/24 05:49 Albumin/Globulin Ratio 0.5 Ratio (1.1-2.1) L 10/09/24 05:49 Amylase 15 Units/L (25-115) L 10/08/24 22:23 Lipase 11 Units/L (16-77) L 10/08/24 22:23 Specimen Type Clean catch urine 10/08/24 23:39 Urine Color Yellow (YELLOW) 10/08/24 23:39 Urine Appearance Clear (CLEAR) 10/08/24 23:39 Urine pH 5.0 (5.0 - 8.0) 10/08/24 23:39 Ur Specific [place] 1.010 (1.000-1.030) 10/08/24 23:39 Urine Protein 2+ (NEGATIVE) 10/08/24 23:39 Urine Glucose (UA) 4+ (NEGATIVE) 10/08/24 23:39 Urine Ketones Negative (NEGATIVE) 10/08/24 23:39 Urine Blood Negative (NEGATIVE) 10/08/24 23:39 Urine Nitrite Negative (NEGATIVE) 10/08/24 23:39 Urine Bilirubin Negative (NEGATIVE) 10/08/24 23:39 Urine Urobilinogen Normal (NORMAL) 10/08/24 23:39 Ur Leukocyte Esterase 1+ (NEGATIVE) 10/08/24 23:39 Urine RBC None seen /HPF (0-3) 10/08/24 23:39 Urine WBC 0-2 /HPF (0-5) 10/08/24 23:39 Ur Squamous Epith Cells Few /HPF (NEGATIVE) 10/08/24 23:39 Amorphous Sediment Trace /HPF (NEGATIVE) 10/08/24 23:39 Urine Bacteria Trace /HPF (NEGATIVE) 10/08/24 23:39 Ur Culture Indicated? No/not indicated 10/08/24 23:39 Review of Systems Constitutional: Weakness and Malaise Eyes: No Symptoms Reported ENT: No Symptoms Reported Respiratory: No Symptoms Reported Cardiovascular: No Symptoms Reported Gastrointestinal: Nausea Genitourinary: No Symptoms Reported Musculoskeletal: No Symptoms Reported Skin: Rash Neurological: Confusion Physical Exam Vital Signs: Vital Signs Temperature 98.1 F Pulse Rate 83 Pulse Rate 82 Pulse Rate 79 Pulse Rate 79 Pulse Rate 82 Pulse Rate 81 Pulse Rate 77 Pulse Rate 81 Pulse Rate 86 Pulse Rate 87 Pulse Rate 84 Pulse Rate 85 Pulse Rate 86 Pulse Rate 82 Pulse Rate 79 Pulse Rate 81 Pulse Rate 86 Respiratory Rate 18 Blood Pressure 132/61 Blood Pressure 97/50 Blood Pressure 95/50 Blood Pressure 78/41 Blood Pressure 77/39 Blood Pressure 101/49 Blood Pressure 117/53 Blood Pressure 81/49 Blood Pressure 79/49 O2 Sat by Pulse Oximetry 97 O2 Sat by Pulse Oximetry 95 O2 Sat by Pulse Oximetry 94 O2 Sat by Pulse Oximetry 93 O2 Sat by Pulse Oximetry 94 O2 Sat by Pulse Oximetry 94 O2 Sat by Pulse Oximetry 92 O2 Sat by Pulse Oximetry 95 O2 Sat by Pulse Oximetry 94 O2 Sat by Pulse Oximetry 95 O2 Sat by Pulse Oximetry 95 O2 Sat by Pulse Oximetry 95 O2 Sat by Pulse Oximetry 95 O2 Sat by Pulse Oximetry 94 O2 Sat by Pulse Oximetry 95 O2 Sat by Pulse Oximetry 94 O2 Sat by Pulse Oximetry 94 Oriented: Normal Eyes: Normal Respiratory: Diminished Throughout Cardiovascular: Normal Auscultation: Bowel Sounds: Normal Tenderness: Periumbilical and Mild Skin: Rash, Maculopapular, Red ( area between the groin folds ) and Tender Musculoskeletal: Normal Psychiatric: Normal Mood Description: Calm Affect: Normal Speech Pattern: Clear and Appropriate Assessment/Plan (1) STEF (acute kidney injury): Status: Acute (2) N&V (nausea and vomiting): Qualifiers: Vomiting Intractability: unspecified Vomiting type: unspecified Qualified Code(s): R11.2 - Nausea with vomiting, unspecified Status: Acute (3) Generalized weakness: Status: Acute (4) Acute dehydration: Status: Acute (5) Cellulitis: Qualifiers: Site of cellulitis: extremity Site of cellulitis of extremity: lower extremity Laterality: left Qualified Code(s): L03.116 - Cellulitis of left lower limb Status: Acute (6) Cancer of pancreas: Qualifiers: Pancreatic malignancy location: other parts of pancreas Qualified Code(s): C25.7 - Malignant neoplasm of other parts of pancreas Status: Chronic (7) Hypertension: Qualifiers: Hypertension type: essential hypertension Qualified Code(s): I10 - Es sential (primary) hypertension Status: Chronic (8) Anemia: Qualifiers: Anemia type: unspecified type Qualified Code(s): D64.9 - Anemia, unspecified Status: Chronic (9) NPH (normal pressure hydrocephalus): Status: Chronic Review H&P Reviewed: Yes Patient was examined?: Yes
[2024-10-09] MEDS: MAXIPIME VIAL 2 GRAMS 2 G in NS 100 ML IV 100 ML IV SCH (11:00)
[2024-10-09] MEDS: NovoLIN R (or HumuLIN R) SUBCUT PRN (13:47)
[2024-10-09] MEDS ORDERED: ZOFRAN INJ 4 MG VIAL IVP PRN (13:50)
[2024-10-09] MEDS: NORCO 5/325 MG TAB PO PRN (15:10)
[2024-10-09] MEDS: BUTT CREAM (COMPOUND) TOP PRN (15:35)
[2024-10-09] MEDS: SNACK - Diabetic Appropriate PO SCH (19:55)
[2024-10-09 20:06] VITALS: RESP 18
[2024-10-10 05:09] LABS: BASOPHILS # (AUTO) 0.1 X10^3/uL (0.0-0.1); BASOPHILS % (AUTO) 0.8 % (0.2-1.0); EOSINOPHILS # (AUTO) 0.2 x10^3/uL (0.0-0.2); EOSINOPHILS % (AUTO) 2.4 % (0.9-2.9); HEMATOCRIT 26.7 % (42.0-54.0); LYMPHOCYTES # (AUTO) 0.7 X10^3/uL (1.3-2.9); LYMPHOCYTES % (AUTO) 9.5 % (21.0-51.0); MEAN CORPUSCULAR HEMOGLOBIN 27.2 pg (27.0-34.0); MEAN CORPUSCULAR HGB CONC 33.8 g/dL (33.0-35.0); MEAN CORPUSCULAR VOLUME 80.6 fL (80.0-100.0); MEAN PLATELET VOLUME 8.1 fL (7.4-11.0); MONOCYTES # (AUTO) 0.2 x10^3/uL (0.3-0.8); MONOCYTES % (AUTO) 2.6 % (0.0-13.0); NEUTROPHILS # (AUTO) 6.4 x10^3/uL (2.2-4.8); NEUTROPHILS % (AUTO) 84.7 % (42.0-75.0); PLATELET COUNT 123 X10^3/uL (150.0-450.0); RED BLOOD COUNT 3.31 X10^6/uL (4.7-6.0); RED CELL DISTRIBUTION WIDTH 14.9 % (11.6-16.5); WHITE BLOOD COUNT 7.5 X10^3/uL (3.6-10.0)
[2024-10-10 05:32] LABS: ALANINE AMINOTRANSFERASE 59 Units/L (12-78); ALBUMIN 1.8 g/dL (3.4-5.0); ALKALINE PHOSPHATASE 181 Units/L (46-116); ASPARTATE AMINO TRANSFERASE 51 Units/L (15-37); BLOOD UREA NITROGEN 32 mg/dL (7-18); CALCIUM 8.5 mg/dL (8.5-10.1); CARBON DIOXIDE 22.7 mmol/L (21-32); CHLORIDE 104 mmol/L (98-107); COR CA(FOR HYPOALB) 10.3 mg/dL (8.5-10.1); COR NA(FOR HYPERGLY) 139 mmol/L (136-145); CREATININE 1.38 mg/dL (0.70-1.30); GLUCOSE 124 mg/dL (65-99); MAGNESIUM 2.1 mg/dL (2.0-2.9); POTASSIUM 3.6 mmol/L (3.5-5.1); SODIUM 138 mmol/L (136-145); TOTAL PROTEIN 6.3 g/dL (6.4-8.2); eGFR NON BLACK RACES 53 (>60)
[2024-10-10 11:08] VITALS: BP 95/49; PULSE 86
[2024-10-10 15:07] VITALS: TEMP 98; O2SAT 97
--- NOTE | 2024-10-15 10:22 | W.DIS.FURT ---
Summary of Discharge Discharge Summary of Date Date of Exam: 10/10/24 Admission Date Date of Admission: 10/08/24 Admission Diagnosis Patient Problems (Updated 10/09/24 @ 09:51 by Camilla Juan MD) Acute dehydration (Acute) E86.0 Generalized weakness (Acute) R53.1 Cancer of pancreas (Chronic) C25.9 Hospital Course: Mr. 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 He had his first chemotherapy on Tuesday and has been feeling sick since then. He was diagnosed with pancreatic cancer with liver mets in August 2024. ER workup showed elevated creatinine, low chloride and sodium. UA was negative. CT brain showed possible left occipital lobe ischemia, age- indeterminate. CTAP showed pancreatic mass and right hepatic metastatic disease. He was started on IV fluids. He is feeling better this morning. He is alert and oriented. He has been able to tolerate his diet. He denies having any neurological deficits including weakness in upper or lower extremity or changes in speech. His blood pressure is fairly well-controlled. He does have a [employer] shunt, unclear if that is compatible with MRI. He also has a chronic rash in his groin area, sees urology. His labs were monitored daily and electrolytes replaced as needed. He remained on hydration and his renal function improved. He was started on cefepime for cellulitis. Patient was not able to have MRI done due to not having a card stating if his [employer] shunt was MRI compatible. He was tolerating p.o. intake. He was working with physical therapy. He was stable for discharge home. All his cultures remain negative. He will follow-up with PCP and oncology as scheduled. Vital Signs: Vital Signs (72 hours) 10/08/24 21:25 10/08/24 21:54 10/08/24 21:59 Temperature 98.0 F Pulse Rate 99 H 92 H 91 H Respiratory Rate 19 Blood Pressure 88/53 O2 Sat by Pulse Oximetry 92 L 95 96 Oxygen Delivery Method Room Air Room Air Room Air 10/08/24 22:00 10/08/24 22:00 10/08/24 22:15 Temperature Pulse Rate 91 H 88 Respiratory Rate Blood Pressure 107/56 O2 Sat by Pulse Oximetry 95 94 L Oxygen Delivery Method 10/08/24 22:30 10/08/24 22:30 10/08/24 22:50 Temperature Pulse Rate 89 95 H Respiratory Rate Blood Pressure 102/57 O2 Sat by Pulse Oximetry 95 97 Oxygen Delivery Method 10/08/24 23:00 10/08/24 23:00 10/08/24 23:00 Temperature Pulse Rate 90 Respiratory Rate Blood Pressure 112/53 112/53 O2 Sat by Pulse Oximetry 95 Oxygen Delivery Method 10/08/24 23:00 10/08/24 23:15 10/08/24 23:38 Temperature Pulse Rate 90 88 94 H Respiratory Rate Blood Pressure O2 Sat by Pulse Oximetry 95 94 L 97 Oxygen Delivery Method 10/08/24 23:39 10/08/24 23:39 10/08/24 23:45 Temperature Pulse Rate 91 H 92 H Respiratory Rate Blood Pressure 120/56 O2 Sat by Pulse Oximetry 96 Oxygen Delivery Method 10/09/24 00:00 10/09/24 00:00 10/09/24 00:15 Temperature Pulse Rate 90 84 Respiratory Rate Blood Pressure 102/57 O2 Sat by Pulse Oximetry 94 L 93 L Oxygen Delivery Method 10/09/24 00:30 10/09/24 00:30 10/09/24 00:30 Temperature Pulse Rate 82 Respiratory Rate Blood Pressure 92/50 92/50 O2 Sat by Pulse Oximetry 92 L Oxygen Delivery Method 10/09/24 00:30 10/09/24 00:30 10/09/24 00:45 Temperature Pulse Rate 82 85 Respiratory Rate Blood Pressure 92/50 O2 Sat by Pulse Oximetry 92 L 93 L Oxygen Delivery Method 10/09/24 01:00 10/09/24 01:02 10/09/24 01:02 Temperature Pulse Rate 92 H 88 Respiratory Rate Blood Pressure 129/60 O2 Sat by Pulse Oximetry 93 L 95 Oxygen Delivery Method 10/09/24 01:15 10/09/24 01:35 10/09/24 01:45 Temperature Pulse Rate 87 86 81 Respiratory Rate Blood Pressure O2 Sat by Pulse Oximetry 93 L 94 L 94 L Oxygen Delivery Method 10/09/24 02:00 10/09/24 02:00 10/09/24 02:04 Temperature Pulse Rate 79 82 Respiratory Rate Blood Pressure 79/49 O2 Sat by Pulse Oximetry 95 94 L Oxygen Delivery Method 10/09/24 02:04 10/09/24 02:15 10/09/24 02:29 Temperature Pulse Rate 86 85 Respiratory Rate Blood Pressure 81/49 O2 Sat by Pulse Oximetry 95 95 Oxygen Delivery Method 10/09/24 02:31 10/09/24 02:38 10/09/24 02:57 Temperature Pulse Rate 84 87 Respiratory Rate Blood Pressure 117/53 O2 Sat by Pulse Oximetry 95 95 Oxygen Delivery Method 10/09/24 03:00 10/09/24 03:00 10/09/24 03:15 Temperature Pulse Rate 86 81 Respiratory Rate Blood Pressure 101/49 O2 Sat by Pulse Oximetry 94 L 95 Oxygen Delivery Method 10/09/24 03:30 10/09/24 03:30 10/09/24 03:32 Temperature Pulse Rate 77 Respiratory Rate Blood Pressure 77/39 78/41 O2 Sat by Pulse Oximetry 92 L Oxygen Delivery Method 10/09/24 03:32 10/09/24 03:33 10/09/24 03:33 Temperature Pulse Rate 81 82 Respiratory Rate Blood Pressure 95/50 O2 Sat by Pulse Oximetry 94 L 94 L Oxygen Delivery Method 10/09/24 03:45 10/09/24 04:00 10/09/24 04:00 Temperature Pulse Rate 79 79 Respiratory Rate Blood Pressure 97/50 O2 Sat by Pulse Oximetry 93 L 94 L Oxygen Delivery Method 10/09/24 04:15 10/09/24 05:09 10/09/24 07:00 Temperature Pulse Rate 82 Respiratory Rate Blood Pressure O2 Sat by Pulse Oximetry 95 Oxygen Delivery Method Room Air Room Air 10/09/24 08:00 10/09/24 12:00 10/09/24 15:10 Temperature 98.1 F 97.7 F Pulse Rate 83 91 H Respiratory Rate 18 20 20 Blood Pressure 132/61 132/62 O2 Sat by Pulse Oximetry 97 96 Oxygen Delivery Method Room Air Room Air 10/09/24 16:00 10/09/24 16:10 10/09/24 19:00 Temperature 98.0 F Pulse Rate 91 H Respiratory Rate 20 20 Blood Pressure 140/61 O2 Sat by Pulse Oximetry 97 Oxygen Delivery Method Room Air 10/09/24 20:00 10/09/24 20:31 10/09/24 21:30 Temperature 97.8 F Pulse Rate 93 H Respiratory Rate 18 18 18 Blood Pressure 137/87 O2 Sat by Pulse Oximetry 100 Oxygen Delivery Method Room Air 10/10/24 00:00 10/10/24 04:00 10/10/24 07:00 Temperature 98.4 F 98.8 F Pulse Rate 78 76 Respiratory Rate 18 18 Blood Pressure 152/78 102/51 O2 Sat by Pulse Oximetry 97 96 Oxygen Delivery Method Room Air 10/10/24 08:00 Temperature 98.1 F Pulse Rate 86 Respiratory Rate 18 Blood Pressure 95/49 O2 Sat by Pulse Oximetry 96 Oxygen Delivery Method Labs: Laboratory Last Values WBC 7.5 X10^3/uL (3.6-10.0) 10/10/24 04:30 RBC 3.31 X10^6/uL (4.7-6.0) L 10/10/24 04:30 Hgb 9.0 g/dL (13.5-18.0) L 10/10/24 04:30 Hct 26.7 % (42.0-54.0) L 10/10/24 04:30 MCV 80.6 fL (80.0-100.0) 10/10/24 04:30 MCH 27.2 pg (27.0-34.0) 10/10/24 04:30 MCHC 33.8 g/dL (33.0-35.0) 10/10/24 04:30 RDW 14.9 % (11.6-16.5) 10/10/24 04:30 Plt Count 123 X10^3/uL (150.0-450.0) L 10/10/24 04:30 Plt Count Comment Decreased (ADEQUATE) 10/09/24 05:49 MPV 8.1 fL (7.4-11.0) 10/10/24 04:30 Neut % (Auto) 84.7 % (42.0-75.0) H 10/10/24 04:30 Lymph % (Auto) 9.5 % (21.0-51.0) L 10/10/24 04:30 [place] % (Auto) 2.6 % (0.0-13.0) 10/10/24 04:30 Eos % (Auto) 2.4 % (0.9-2.9) 10/10/24 04:30 Baso % (Auto) 0.8 % (0.2-1.0) 10/10/24 04:30 Neut # (Auto) 6.4 x10^3/uL (2.2-4.8) H 10/10/24 04:30 Lymph # (Auto) 0.7 X10^3/uL (1.3-2.9) L 10/10/24 04:30 [place] # (Auto) 0.2 x10^3/uL (0.3-0.8) L 10/10/24 04:30 Eos # (Auto) 0.2 x10^3/uL (0.0-0.2) 10/10/24 04:30 Baso # (Auto) 0.1 X10^3/uL (0.0-0.1) 10/10/24 04:30 Absolute Nucleated RBC 0.0 /100WBC 10/10/24 04:30 Total Counted 100 10/09/24 05:49 Neutrophils % (Manual) 97 % (39-76) H 10/09/24 05:49 Lymphocytes % (Manual) 3 % (13-43) L 10/09/24 05:49 Monocytes % (Manual) 1 % (4-9) L 10/08/24 22:23 Plt Morphology Comment Normal (NORMAL) 10/09/24 05:49 RBC Morphology Normal (NORMAL) 10/09/24 05:49 Sodium 138 mmol/L (136-145) 10/10/24 04:30 Corrected Sodium 139 mmol/L (136-145) 10/10/24 04:30 Potassium 3.6 mmol/L (3.5-5.1) 10/10/24 04:30 Chloride 104 mmol/L (98-107) 10/10/24 04:30 Carbon Dioxide 22.7 mmol/L (21-32) 10/10/24 04:30 BUN 32 mg/dL (7-18) H 10/10/24 04:30 Creatinine 1.38 mg/dL (0.70-1.30) H 10/10/24 04:30 Est GFR (MDRD) Af Amer > 60 (>60) 10/10/24 04:30 Est GFR (MDRD) Non-Af 53 (>60) L 10/10/24 04:30 Glucose 124 mg/dL (65-99) H 10/10/24 04:30 POC Glucose (mg/dL) 119 mg/dL (65-99) H 10/10/24 05:24 Calcium 8.5 mg/dL (8.5-10.1) 10/10/24 04:30 Corrected Calcium 10.3 mg/dL (8.5-10.1) H 10/10/24 04:30 Magnesium 2.1 mg/dL (2.0-2.9) 10/10/24 04:30 Total Bilirubin 0.50 mg/dL (0.2-1.0) 10/10/24 04:30 AST 51 Units/L (15-37) H 10/10/24 04:30 ALT 59 Units/L (12-78) 10/10/24 04:30 Alkaline Phosphatase 181 Units/L (46-116) H 10/10/24 04:30 B-Natriuretic Peptide 90.7 pg/mL (0-79) H 10/08/24 22:23 Total Protein 6.3 g/dL (6.4-8.2) L 10/10/24 04:30 Albumin 1.8 g/dL (3.4-5.0) L 10/10/24 04:30 Globulin 4.5 g/dL (2.5-4.5) 10/10/24 04:30 Albumin/Globulin Ratio 0.4 Ratio (1.1-2.1) L 10/10/24 04:30 Amylase 15 Units/L (25-115) L 10/08/24 22:23 Lipase 11 Units/L (16-77) L 10/08/24 22:23 Specimen Type Clean catch urine 10/08/24 23:39 Urine Color Yellow (YELLOW) 10/08/24 23:39 Urine Appearance Clear (CLEAR) 10/08/24 23:39 Urine pH 5.0 (5.0 - 8.0) 10/08/24 23:39 Ur Specific [place] 1.010 (1.000-1.030) 10/08/24 23:39 Urine Protein 2+ (NEGATIVE) 10/08/24 23:39 Urine Glucose (UA) 4+ (NEGATIVE) 10/08/24 23:39 Urine Ketones Negative (NEGATIVE) 10/08/24 23:39 Urine Blood Negative (NEGATIVE) 10/08/24 23:39 Urine Nitrite Negative (NEGATIVE) 10/08/24 23:39 Urine Bilirubin Negative (NEGATIVE) 10/08/24 23:39 Urine Urobilinogen Normal (NORMAL) 10/08/24 23:39 Ur Leukocyte Esterase 1+ (NEGATIVE) 10/08/24 23:39 Urine RBC None seen /HPF (0-3) 10/08/24 23:39 Urine WBC 0-2 /HPF (0-5) 10/08/24 23:39 Ur Squamous Epith Cells Few /HPF (NEGATIVE) 10/08/24 23:39 Amorphous Sediment Trace /HPF (NEGATIVE) 10/08/24 23:39 Urine Bacteria Trace /HPF (NEGATIVE) 10/08/24 23:39 Ur Culture Indicated? No/not indicated 10/08/24 23:39 Reason For Visit: ACUTE DEHYDRATION, AMS, CONSTIPATION, Discharge Diagnosis All Active Problems (Updated 10/09/24 @ 09:51 by Camilla Juan MD) STEF (acute kidney injury) (Acute) NPH (normal pressure hydrocephalus) (Chronic) Cellulitis (Acute) Anemia (Chronic) Urinary tract infection (Acute) Hypertension (Chronic) Diarrhea (Acute) N&V (nausea and vomiting) (Acute) Generalized weakness (Acute) Acute dehydration (Acute) COVID-19 virus infection (Acute) Pneumonia (Acute) Heat exposure (Acute) Dehydration (Acute) UTI (urinary tract infection) (Acute) Acute dehydration (Acute) Generalized weakness (Acute) Cancer of pancreas (Chronic) Plan of Treatment: Continue with present treatment and follow up plan. Pt is to keep follow up appointment as instructed and take medications as ordered. Discharge Medications Discharge Medications: No Known Drug Allergies Allergy (Verified 06/15/20 14:36) CONTINUE taking the following medications empagliflozin 25 mg tablet (Jardiance) 25 mg PO QDAY 10/09/24 [History] famotidine 40 mg tablet 40 mg PO BID 10/09/24 [History] folic acid 1 mg tablet 1 mg PO QDAY 10/09/24 [History] olanzapine 2.5 mg tablet 2.5 mg PO QPM 10/09/24 [History] olanzapine 5 mg tablet 5 mg PO QPM 10/09/24 [History] ondansetron HCl 8 mg tablet 8 mg PO Q8H PRN nausea/vomiting 10/09/24 [History] oxycodone 5 mg tablet 5 mg PO Q4H PRN pain 10/09/24 [History] pantoprazole 40 mg tablet,delayed release 40 mg PO QDAY 10/09/24 [History] prochlorperazine maleate 10 mg tablet 10 mg PO Q6H PRN 10/09/24 [History] New Prescriptions cephalexin 500 mg capsule 500 mg PO BID 7 days #14 caps 10/10/24 [Rx] Discharge Disposition Assessment: No distress noted. Discharge Disposition: To home Discharge Condition: Stable Discharge Plan Discharge Plan Hospital Course: Mr. 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 He had his first chemotherapy on Tuesday and has been feeling sick since then. He was diagnosed with pancreatic cancer with liver mets in August 2024. ER workup showed elevated creatinine, low chloride and sodium. UA was negative. CT brain showed possible left occipital lobe ischemia, age- indeterminate. CTAP showed pancreatic mass and right hepatic metastatic disease. He was started on IV fluids. He is feeling better this morning. He is alert and oriented. He has been able to tolerate his diet. He denies having any neurological deficits including weakness in upper or lower extremity or changes in speech. His blood pressure is fairly well-controlled. He does have a [employer] shunt, unclear if that is compatible with MRI. He also has a chronic rash in his groin area, sees urology. His labs were monitored daily and electrolytes replaced as needed. He remained on hydration and his renal function improved. He was started on cefepime for cellulitis. Patient was not able to have MRI done due to not having a card stating if his [employer] shunt was MRI compatible. He was tolerating p.o. intake. He was working with physical therapy. He was stable for discharge home. All his cultures remain negative. He will follow-up with PCP and oncology as scheduled. Patient Disposition: 01 HOME, SELF-CARE Condition: Stable Health Concerns: Post Hospitalization: new medications and changes needed to prevent readmission or further decline. Pt educated and given instructions on all concerns. Care Plan Goals: Problem: Fluid Volume Deficit Goal: Maintain/Improved Adequate hydration. Instructions: Follow provided instructions. Follow up with primary physician as directed. Contact primary care physician or report to the closest Emergency Room if condition worsens. Plan of Treatment: Continue with present treatment and follow up plan. Pt is to keep follow up appointment as instructed and take medications as ordered. Assessment: No distress noted. Prescription drug monitoring program results: PDMP reviewed and no concerns identified Prescriptions: New cephalexin 500 mg capsule 500 mg PO BID 7 Days Qty: 14 0RF Continued insulin aspart U-100 [Novolog FlexPen U-100 Insulin] 100 unit/mL (3 mL) Insulin Pen 108 unit SUBCUT DAILY ondansetron HCl 8 mg tablet 8 mg PO Q8H PRN (Reason: nausea/vomiting) famotidine 40 mg tablet 40 mg PO BID olanzapine 5 mg tablet 5 mg PO QPM prochlorperazine maleate 10 mg tablet 10 mg PO Q6H PRN olanzapine 2.5 mg tablet 2.5 mg PO QPM pantoprazole 40 mg tablet,delayed release (DR/EC) 40 mg PO QDAY folic acid 1 mg tablet 1 mg PO QDAY oxycodone 5 mg tablet 5 mg PO Q4H PRN (Reason: pain) Jardiance 25 mg tablet 25 mg PO QDAY Orders to Discharge Patient Discharge Orders: Discharge (Routine); Ordered 10/10/24 Ordered By: Camilla Juan Follow ups/Referrals Follow ups/Referrals: EZEKIEL SAUCEDA [Primary Care Provider] - 10/18/24 9:00 am Instructions Instructions: Acute Kidney Injury, Adult, Weakness: What to Know, [id number], Rehydration, Older Adult, Dehydration, Older Adult, [id number], Managing Cancer-Related Fatigue Stand Alone Forms: Find Help Web Site, Post Hospital Follow Up Care
== END 2024-10-10 14:15 | disposition home or self-care (01) ==
LOC: ICU 21:24 → ER 21:24 → ICU 10-09 04:28
PROVIDERS: ADMIT Internal Medicine; ATTEND Internal Medicine
DX: R11.2 Nausea with vomiting, unspecified; L03.116 Cellulitis of left lower limb; E86.0 Dehydration; E78.5 Hyperlipidemia, unspecified; D64.89 Other specified anemias; E11.65 Type 2 diabetes mellitus with hyperglycemia; E87.1 Hypo-osmolality and hyponatremia; I10 Essential (primary) hypertension; G91.2 (Idiopathic) normal pressure hydrocephalus; K21.9 Gastro-esophageal reflux disease without esophagitis; R26.89 Other abnormalities of gait and mobility; Z98.2 Presence of cerebrospinal fluid drainage device; Z92.21 Personal history of antineoplastic chemotherapy; R21 Rash and other nonspecific skin eruption; R53.1 Weakness; C25.7 Malignant neoplasm of other parts of pancreas; K59.09 Other constipation; R41.82 Altered mental status, unspecified; N17.8 Other acute kidney failure; Z79.4 Long term (current) use of insulin; Z29.89 Encounter for other specified prophylactic measures; C78.7 Secondary malignant neoplasm of liver and intrahepatic bile duct